=== PATIENT | male | born 1990 | race African-American/Black ===

== ENCOUNTER 2017-11-28 13:18 | Inpatient (IN) | payer MEDICAID ==
[~2017-11-28] VITALS: Ht 193 cm; Wt 87.4 kg
[2017-11-28] MEDS ORDERED: TRAZ-144 PO (13:34)
[2017-11-28] MEDS ORDERED: FLUO-191 PO (13:36)
[2017-11-28] MEDS ORDERED: DIPH25 PO (13:36)
[2017-11-28] MEDS ORDERED: ARIP5TAB8 PO (13:36)
[2017-11-28 14:06] LABS: BASOPHILS # (AUTO) 0.02 K/uL (0.00-0.20); BASOPHILS % (AUTO) 0.4 % (0.0-2.0); EOSINOPHILS # (AUTO) 0.08 K/uL (0.00-0.70); EOSINOPHILS % (AUTO) 1.79 % (1.0-6.0); HEMATOCRIT 43.8 % (41-53); HEMOGLOBIN 14.4 g/dL (13.5-17.5); LYMPHOCYTES # (AUTO) 1.5 K/uL (1.0-4.8); LYMPHOCYTES % (AUTO) 33.3 % (22.0-44.0); MEAN CORPUSCULAR HEMOGLOBIN 28.8 pg (26.0-34.0); MEAN CORPUSCULAR HGB CONC 32.8 G/dL (31.0-37.0); MEAN CORPUSCULAR VOLUME 88 fL (80-100); MONOCYTES # (AUTO) 0.3 K/uL (0.1-1.0); MONOCYTES % (AUTO) 7.1 % (2.0-9.0); NEUTROPHILS # (AUTO) 2.6 K/uL (1.8-7.7); NEUTROPHILS % (AUTO) 57.4 % (40.0-70.0); PLATELET COUNT (AUTO) 234 K/uL (150-450); RED BLOOD CELL COUNT(AUTO) 4.99 MIL/uL (4.50-5.90); RED CELL DISTRIBUTION WIDTH 14.4 % (11.5-14.5)
[2017-11-28 14:19] LABS: ANION GAP 8 mmol/L (8-16); CARBON DIOXIDE 29 mmol/L (22-29); CHLORIDE 101 mmol/L (98-107); CREATININE 1.06 mg/dL (0.60-1.30); GLUCOSE,RANDOM 119 mg/dL (70-110); POTASSIUM 3.6 mmol/L (3.5-5.1); SODIUM SERUM 138 mmol/L (136-145); UREA NITROGEN, BLOOD 6 mg/dL (7-18)
[2017-11-28 14:20] LABS: CALCIUM, TOTAL 9.3 mg/dL (8.8-10.5); GLOMERULAR FILTR. RATE CALC > 60 mL/min (>60)
[2017-11-28 14:21] LABS: AMPHET/METH SCREEN,URINE NEGATIVE (NEGATIVE); BARBITURATE SCREEN, URINE NEGATIVE (NEGATIVE); BENZODIAZEPINES SCREEN,URINE NEGATIVE (NEGATIVE); CANNABINOID SCREEN,URINE NEGATIVE (NEGATIVE); COCAINE SCREEN,URINE NEGATIVE (NEGATIVE); METHADONE SCREEN, URINE NEGATIVE (NEGATIVE); OPIATE SCREEN,URINE NEGATIVE (NEGATIVE)
[2017-11-28 14:23] LABS: PHENCYCLIDINE SCREEN,URINE NEGATIVE (NEGATIVE)
[2017-11-28 14:26] LABS: ALANINE AMINOTRANSFERASE 45 U/L (12-78); ALBUMIN 4.2 g/dL (3.4-5.0); ALKALINE PHOSPHATASE 140 U/L (46-116); ASPARTATE AMINOTRANSFERASE 24 U/L (15-37); BILIRUBIN,TOTAL 0.4 mg/dL (0.1-1.0)
[2017-11-28] MEDS ORDERED: ZOLPIDEM TARTRATE 10 MG TABLET PO PRN (15:00)
[2017-11-28] MEDS ORDERED: LORazepam 2 MG TABLET PO PRN (15:00)
[2017-11-28] MEDS ORDERED: HALOPERIDOL 5 MG TABLET PO PRN (15:00)
[2017-11-28 20:22] VITALS: BP 118/84
[2017-11-28] MEDS ORDERED: IBUPROFEN 400 MG TABLET PO PRN (20:45)
[2017-11-28] MEDS ORDERED: ACETAMINOPHEN 325 MG TABLET PO PRN (20:45)
[2017-11-28] MEDS ORDERED: INFLUENZA VIRUS VACCINE QVS 2017-18 (3YR+)/PF 60 MCG/0.5 ML SYRINGE IM ONE (21:00)
[2017-11-29 03:30] LABS: APPEARANCE,URINE CLEAR (CLEAR); BILIRUBIN,URINE NEGATIVE (NEGATIVE); GLUCOSE, URINE (UA) NEGATIVE (NEGATIVE); KETONES,URINE NEGATIVE (NEGATIVE); LEUKOCYTE ESTERASE ,URINE NEGATIVE (NEGATIVE); NITRATE,URINE NEGATIVE (NEGATIVE); OCCULT BLOOD,URINE NEGATIVE (NEGATIVE); PH,URINE 6.5 (5.0-8.0); PROTEIN,URINE NEGATIVE (NEGATIVE); UROBILINOGEN,URINE 0.2 mg/dL (<=1.0)
[2017-11-29 03:36] LABS: AMPHET/METH SCREEN,URINE NEGATIVE (NEGATIVE); BARBITURATE SCREEN, URINE NEGATIVE (NEGATIVE); BENZODIAZEPINES SCREEN,URINE NEGATIVE (NEGATIVE); CANNABINOID SCREEN,URINE NEGATIVE (NEGATIVE); COCAINE SCREEN,URINE NEGATIVE (NEGATIVE); METHADONE SCREEN, URINE NEGATIVE (NEGATIVE); OPIATE SCREEN,URINE NEGATIVE (NEGATIVE)
[2017-11-29 03:37] LABS: PHENCYCLIDINE SCREEN,URINE NEGATIVE (NEGATIVE)
[2017-11-29 07:33] LABS: CHOL/HDL RATIO 3.9 (4.2-7.3); THYROID STIMULATING HORMONE 0.61 uIU/mL (0.36-3.74)
[2017-11-29 08:57] VITALS: BP 105/62
[2017-11-29] MEDS: FLUoxetine HCL 20 MG CAPSULE PO SCH (10:26)
[2017-11-29] MEDS: ARIPiprazole 5 MG TABLET PO SCH (10:26)
[2017-11-29 16:44] VITALS: BP 117/73
[2017-11-29] MEDS: TraZODone HCL 50 MG TABLET PO SCH (20:47)
[2017-11-30] MEDS: FLUoxetine HCL 20 MG CAPSULE PO SCH (08:01)
[2017-11-30] MEDS: ARIPiprazole 5 MG TABLET PO SCH (08:01)
[2017-11-30 08:30] VITALS: BP 117/67
[2017-11-30] MEDS ORDERED: TraZODone HCL 50 MG TABLET PO SCH (09:00)
[2017-11-30 16:40] VITALS: BP 139/69
[2017-11-30] MEDS: TraZODone HCL 50 MG TABLET PO SCH (21:05)
[2017-12-01 08:57] VITALS: BP 122/80
[2017-12-01] MEDS: ARIPiprazole 5 MG TABLET PO SCH (09:44)
[2017-12-01] MEDS: FLUoxetine HCL 20 MG CAPSULE PO SCH (09:44)
[2017-12-01 17:11] VITALS: BP 110/67
[2017-12-01] MEDS: TraZODone HCL 50 MG TABLET PO SCH (20:27)
[2017-12-02] MEDS: ARIPiprazole 5 MG TABLET PO SCH (08:54)
[2017-12-02] MEDS: FLUoxetine HCL 20 MG CAPSULE PO SCH (08:55)
[2017-12-02 10:48] VITALS: BP 112/81
[2017-12-02] MEDS ORDERED: DiphenhydrAMINE HCL 50 MG/ML VIAL ONE (13:08)
[2017-12-02] MEDS ORDERED: LORazepam 2 MG/ML VIAL ONE (13:08)
[2017-12-02] MEDS ORDERED: HALOPERIDOL LACTATE 5 MG/ML VIAL ONE (13:08)
[2017-12-02 16:42] VITALS: BP 130/78
[2017-12-02] MEDS: TraZODone HCL 50 MG TABLET PO SCH (20:56)
[2017-12-03] MEDS: ARIPiprazole 5 MG TABLET PO SCH (09:18)
[2017-12-03] MEDS: FLUoxetine HCL 20 MG CAPSULE PO SCH (09:18)
[2017-12-03 10:36] VITALS: BP 129/92
[2017-12-03 17:10] VITALS: BP 137/77
[2017-12-03] MEDS: TraZODone HCL 50 MG TABLET PO SCH (22:02)
[2017-12-04] MEDS: FLUoxetine HCL 20 MG CAPSULE PO SCH (09:01)
[2017-12-04] MEDS: ARIPiprazole 5 MG TABLET PO SCH (09:01)
[2017-12-04 09:30] VITALS: BP 115/66
[2017-12-04 16:15] VITALS: BP 129/75
[2017-12-04] MEDS: TraZODone HCL 50 MG TABLET PO SCH (20:48)
[2017-12-05] MEDS: FLUoxetine HCL 20 MG CAPSULE PO SCH (09:06)
[2017-12-05] MEDS: ARIPiprazole 5 MG TABLET PO SCH (09:06)
[2017-12-05 09:10] VITALS: BP 127/73
[2017-12-05 18:52] VITALS: BP 128/85
[2017-12-05] MEDS: TraZODone HCL 50 MG TABLET PO SCH (20:29)
[2017-12-06 08:12] VITALS: BP 122/78
[2017-12-06] MEDS: FLUoxetine HCL 20 MG CAPSULE PO SCH (09:03)
[2017-12-06] MEDS: ARIPiprazole 5 MG TABLET PO SCH (09:03)
== END 2017-12-06 17:30 | disposition home or self-care (01) | DRG 751 ==
LOC: EMS 13:21 → AHU 19:17 → 3EI 19:33
DX: F33.2 Major depressive disorder, recurrent severe without psychotic features (principal); R45.851 Suicidal ideations; E78.5 Hyperlipidemia, unspecified; F17.200 Nicotine dependence, unspecified, uncomplicated; R73.9 Hyperglycemia, unspecified; F12.90 Cannabis use, unspecified, uncomplicated; E78.00 Pure hypercholesterolemia, unspecified; Z79.899 Other long term (current) drug therapy; Z59.0 Homelessness
CPT/HCPCS: 80307; 84443; 87081; 99285; G0480; J1200; J1630; J2060